=== PATIENT | female | born 1990 | race Caucasian/White ===

== ENCOUNTER 2024-04-11 06:09 | Emergency (ER) | payer OTHER, SELFPAY ==
[2024-04-11 06:11] VITALS: BP 113/71
--- NOTE | 2024-04-11 06:19 | ED.GENMED ---
History of Present Illness
General
Chief Complaint: Abdominal Symptoms
Time Seen by Provider: 04/11/24 06:17
History of Present Illness
History of Present Illness:
HPI: Patient is 9 weeks and presents due to concerns for dehydration. She has been vomiting and has been on Zofran over the last few days. She feels very thirsty. She thinks that the last time she had anything to drink was over 18 hours
ago. She has no abdominal pain. She has not had vaginal bleeding. This is her third and she had severe hyperemesis gravidarum requiring admission in her first . She had been taking likely just but currently was taking Zofran
over the last 2 days. There has been only minimal if any improvement with Zofran.
EXAM:
GENERAL: Well appearing but in mild distress
HEENT: Moist oral mucosa
CARDIOVASCULAR: No murmurs, normal heart rate, regular rhythm, No chest wall tenderness
PULMONARY: No respiratory distress, breath sounds are clear and equal
ABDOMEN: Soft with no peritoneal signs, no tenderness
NEUROLOGIC: Excellent strength all extremities, no coordination deficits
PSYCHIATRIC: Appropriate mental status, normal insight and judgement
EXTREMITIES: Nontender, no edema, moves all extremities equally
SKIN: No rash, no lesions
TIME OF INITIAL ENCOUNTER: 6:20 AM
NUMBER AND COMPLEXITY OF PROBLEMS ADDRESSED AT THE ENCOUNTER
� Chronic conditions affecting care: Has had SVT status post ablation 2003, asthma, autoimmune hepatitis
� Acute Exacerbation and/or Progression of Chronic Illness: This is an acute problem
� Differential Diagnosis includes: Hyperemesis gravidarum, dehydration, the patient has no pelvic cramping nor vaginal bleeding to suggest miscarriage
AMOUNT AND/OR COMPLEXITY OF DATA TO BE REVIEWED AND ANALYZED
� I performed an independent evaluation of and my interpretation is:
EKG:
CT:
X-rays:
Laboratory Studies: White count 6.2, hemoglobin 9.5, chemistries unremarkable, no ketones in urine, urobilinogen noted however the LFTs are normal
Other:
� Review of other/old records: The patient was admitted to [facility] in 2008 for hyperemesis gravidarum; hemoglobin in 2008 was 9.6
� Clinical information was obtained by an independent historian: None needed
� Prescriptions/Medications Considered but not given:
� Further testing considered but not performed: No indication for ultrasound imaging of the pelvis at this time
RISK OF COMPLICATIONS AND/OR MORBIDITY OR MORTALITY OF PATIENT MANAGEMENT
� Social determinants of health affecting care: Lives at home
� Discussion with other providers: None needed
� Escalation of care including admission/observation vs risk of discharge considered: The patient was given 2 L of IV fluids. She has no ketones in her urine. On reassessment at 8:14 AM, the patient is resting comfortably.
Past History
Past History
ED Past Medical History: Asthma, Other (SVT ) and Other
ED Past Surgical History: Cardiac (Radiofrequency ablation 2004 ) and Other (wisdom tooth extraction x4 )
Social History
Tobacco: Non-smoker
Alcohol: None
Personal: Single
Living: with family
Phy Exam
Physical Exam
Physical Exam:
See HPI
Course
Orders/Labs/Results
Orders:
Orders
04/11/24 06:20
0.9% Sodium Chloride 1000 ml [Nss] 1,000 ml IV BOLUS
04/11/24 06:21
0.9% Sodium Chloride 1000 ml [Nss] 1,000 ml IV BOLUS
04/11/24 06:25
Diphenhydramine [Benadryl] 25 mg IV NOW STA
Metoclopramide [Reglan] 10 mg IV NOW STA
04/11/24 06:43
Complete Blood Count/With Diff Urgent
Comprehensive Metabolic Panel Urgent
Lipase Urgent
Urinalysis Urgent
Date Specimen was Collected: 04/11/24
Time Specimen was Collected: 06:32
Urine Microscopic Urgent
Date Specimen was Collected: 04/11/24
Time Specimen was Collected: 06:32
Abnormal Lab Results
04/11/24
06:43
RBC 4.19 L 10^6/uL
(4.20-5.40)
Hgb 9.5 L g/dL
(12.0-16.0)
Hct 28.2 L %
(37.0-47.0)
MCV 67.3 L fL
(81.0-99.0)
MCH 22.7 L pg
(27.0-31.0)
RDW 19.0 H %
(11.5-14.5)
Abs Immat Gran (auto) 0.1 H 10^3/uL
(0-0.05)
Absolute Monos (auto) 0.7 H 10^3/uL
(0.1-0.6)
Immature Gran % 1.0 H %
(0-0.5)
Monocytes % 10.9 H %
(1.7-9.3)
ALT 47 H U/L
(0-35)
Urine Bilirubin 1+ A
(Negative)
Urine Urobilinogen 2+ A
(Neg - 1+)
Ur Leukocyte Esterase Trace A
(Negative)
Urine Bacteria Few A
(Negative)
04/11/24 06:43
04/11/24 06:43
Vital Signs
Initial and Last Documented VS:
Initial Vital Signs
Temp Pulse Resp BP Pulse Ox
98.9 F 95 20 113/71 99
04/11/24 06:11 04/11/24 06:11 04/11/24 06:11 04/11/24 06:11 04/11/24 06:11
Last Documented Vital Signs
Temp Pulse Resp BP Pulse Ox
98.9 F 62 15 97/52 99
04/11/24 06:11 04/11/24 08:00 04/11/24 08:00 04/11/24 08:00 04/11/24 08:00
*Critical Care Note
Total Time (30-74mins, 75-104mins- exclusive of procedures): Not Applicable
ED Attending Note
-
Portions of this chart may have been created with voice recognition software.� Occasional wrong word or��sound alike� substitutions may have occurred due to the inherent limitations of voice recognition software.
Discharge Plan
Departure
Patient Disposition: Home (Routine Discharge)
Date of Disposition: 04/11/24
Time of Disposition: 08:15
Patient with high blood pressure during this ER visit?: Yes
Discharge Problem:
Hyperemesis gravidarum
Instructions: Hyperemesis Gravidarum (DC)
Prescriptions:
New
metoclopramide HCl [Reglan] 10 mg tablet
10 mg PO Q8HPRN PRN (Reason: nausea and vomiting) Qty: 9 0RF
No Action
ondansetron HCl [Zofran] 4 MG tablet
4 mg sublingual Q8
vit27,ibrcbgi-[id number]-YR 1 EACH tablet
1 ea PO DAILY
Referrals:
Oscar Lew MD [Family Provider] -
Activity Restrictions/Additional Instructions:
Follow-up your TEACH[employer]OCI[employer]. Return here if worse. I also sent a prescription for Reglan to your pharmacy.
Interventions
Interventions:
*Risk Screen - Suicide Last Done: 04/11/24 06:11
*General Assessment Last Done: 04/11/24 06:11
*Neglect/Abuse Screening Last Done: 04/11/24 06:11
ED- Fall Risk Assessment Last Done: 04/11/24 06:11
*ED COVID-19 Vaccine History Last Done: 04/11/24 06:11
FI-Ceyuno-Hyukoqlhkp Assessment Last Done: 04/11/24 06:50
ED-Female Genitourinary Assessment Last Done: 04/11/24 06:50
Discharge Date and Time
Print Language: YORUBA
[2024-04-11] MEDS: REGLAN 10 MG IV (06:39)
[2024-04-11] MEDS: BENADRYL 25 MG IV (06:39)
[2024-04-11] MEDS: NSS 1000 IV ×2 (06:42)
[2024-04-11 07:09] LABS: Urine Albumin Negative (Neg - Trace); Urine Bilirubin 1+ (Negative); Urine Character Clear (Clear); Urine Color Yellow; Urine Glucose Negative (Negative); Urine Ketone Negative (Negative); Urine Leukocyte Trace (Negative); Urine Nitrite Negative (Negative); Urine Occult Blood Negative (Negative); Urine Specific Gravity 1.015 (<1.030); Urine Urobilinogen 2+ (Neg - 1+)
[2024-04-11 07:20] LABS: ALT (SGPT) 47 U/L (0-35); AST (SGOT) 33 U/L (14-36); Albumin 4.3 g/dl (3.5-5.0); Alkaline Phosphatase 43 U/L (38-126); Blood Urea Nitrogen 11 mg/dl (7-17); Calcium 9.5 mg/dl (8.4-10.2); Carbon Dioxide 22 mmol/L (22-30); Chloride 105 mmol/L (98-107); Glucose 89 mg/dl (70-99); Lipase 51 U/L (23-300); Potassium 3.9 mmol/L (3.5-5.1); Sodium 135 mmol/L (135-145); Total Bilirubin 1.1 mg/dl (0.2-1.3); Total Protein 6.9 g/dl (6.3-8.2); eGFR > 60.00
[2024-04-11 07:55] LABS: % Basophils 0.3 % (0-2); % Eosinophils 1.1 % (0-6); % Lymphocytes 26.6 % (20.5-51.1); % Monocytes 10.9 % (1.7-9.3); % Neutrophils 60.1 % (42.2-75.2); Absolute Eosinophils 0.1 10^3/uL (0-0.7); Absolute Immature Granulocytes 0.1 10^3/uL (0-0.05); Absolute Lymphocytes 1.7 10^3/uL (1.2-3.4); Absolute Monocytes 0.7 10^3/uL (0.1-0.6); Absolute Neutrophils 3.7 10^3/uL (1.4-6.5); Hematocrit 28.2 % (37.0-47.0); Hemoglobin 9.5 g/dL (12.0-16.0); Mean Corp Hgb Conc. 33.7 g/dL (33.0-37.0); Mean Corpuscular Hgb 22.7 pg (27.0-31.0); Mean Corpuscular Volume 67.3 fL (81.0-99.0); Nucleated Red Blood Cells % 0 %; Platelet Count 202 10^3/uL (130-400); Red Blood Cell Count 4.19 10^6/uL (4.20-5.40); Urine Urothelial Cell 0-2 /LPF (FEW); White Blood Cell Count 6.2 10^3/uL (4.8-10.8)
[2024-04-11 07:56] LABS: Urine Bacteria Few (Negative); Urine Red Blood Cell 0-2 /HPF (0-2)
[2024-04-11 08:00] VITALS: BP 97/52
== END 2024-04-11 10:31 | disposition home or self-care (01) ==
LOC: EMR 06:09
PROVIDERS: EMERGENCY PHYSICIAN Emergency Medicine; FAMILY PHYSICIAN Family Medicine
DX: O21.0 Mild hyperemesis gravidarum (principal); O99.511 Diseases of the respiratory system complicating pregnancy, first trimester; J45.909 Unspecified asthma, uncomplicated; Z3A.09 9 weeks gestation of pregnancy
CPT/HCPCS: 99283; 96374; 96375; 96361; 80053; 81003; 81015; 83690; 85025

== ENCOUNTER 2025-05-24 16:40 | Emergency (ER) | payer OTHER, BC, SELFPAY ==
[2025-05-24 16:42] VITALS: BP 116/66
[2025-05-24 17:09] LABS: Hematocrit 30.4 % (37.0-47.0); Hemoglobin 10.0 g/dL (12.0-16.0); Mean Corp Hgb Conc. 32.9 g/dL (33.0-37.0); Mean Corpuscular Volume 65.2 fL (81.0-99.0); Nucleated Red Blood Cells % 0 %; Platelet Count 223 10^3/uL (130-400); Red Cell Dist. Width 17.9 % (11.5-14.5)
[2025-05-24 17:35] LABS: ALT (SGPT) 75 U/L (0-35); AST (SGOT) 35 U/L (14-36); Albumin 4.5 g/dl (3.5-5.0); Alkaline Phosphatase 56 U/L (38-126); Blood Urea Nitrogen 11 mg/dl (7-17); Calcium 9.7 mg/dl (8.4-10.2); Carbon Dioxide 23 mmol/L (22-30); Chloride 104 mmol/L (98-107); Glucose 120 mg/dl (70-99); Potassium 4.1 mmol/L (3.5-5.1); Sodium 135 mmol/L (135-145); Total Protein 7.5 g/dl (6.3-8.2); eGFR > 60.00
[2025-05-24 18:01] LABS: HCG, Serum Qualitative Screen Positive
[2025-05-24] MEDS: NSS 1000 IV (18:13)
[2025-05-24] MEDS: ZOFRAN 4 MG IV (18:13)
--- NOTE | 2025-05-24 18:38 | ED.GENMED ---
History of Present Illness
General
Chief Complaint: Problems
Source: patient
Time Seen by Provider: 05/24/25 17:49
History of Present Illness
History of Present Illness:
34-year-old female, , currently 8 weeks presenting to the ER after she started experiencing light vaginal bleeding around 1:00 this afternoon with light bleeding consistent since that time, recommended to come to the ER by her
coding team lead. Patient had a ultrasound done earlier this week showing single live intrauterine . Patient endorses since she has gotten being nauseous, taking Zofran at home with intermittent relief. She endorses some mild lower
abdominal cramping presently but otherwise no urinary symptoms, fevers, back or flank pain or any other concerns.
Past History
Past History
ED Past Medical History: Asthma, Other (SVT ) and Other
ED Past Surgical History: Cardiac (Radiofrequency ablation 2004 ) and Other (wisdom tooth extraction x4 )
Social History
Tobacco: Non-smoker
Alcohol: None
Drug: None
Personal: Single
Living: with family
Review of Systems
Review of Systems
All Other Systems: ROS reviewed and negative except as documented in HPI and ROS
Phy Exam
Physical Exam
Physical Exam:
GENERAL: Alert , retching, appears mildly uncomfortable
EYE: conjunctiva clear
Head: Normocephalic atraumatic
NECK: Supple,
ENT: mmm.
LUNGS: no acute respiratory distress
ABDOMEN: soft, non-tender
NEUROLOGICAL: Alert and oriented
SKIN: Warm and dry, skin intact.
MUSCULOSKELETAL: well perfused.
PSYCH: Normal and appropriate interaction.
Scores
Heart Failure Risk
Heart Failure Risk Score: Not Applicable
Heart Score for Chest Pain Patients
STEMI patient?: Not applicable
Withdrawal Assessment of Alcohol
Withdrawal Assessment Completed?: Not applicable
Course
Orders/Labs/Results
Orders:
Orders
05/24/25 16:49
Beta HCG Quantitative Urgent
Is this a screen?: No
Comment: ADD ON
CMP [Comprehensive Metabolic Panel] Urgent
Complete Blood Count/With Diff Urgent
HCG, Serum Qualitative Screen Urgent
05/24/25 16:50
Test Result ONCE
05/24/25 17:49
US 1st Trimester Urgent
Comment:
Reason For Exam: first trimester bleeding
05/24/25 18:05
Add On- LAB Urgent
Tests Added?: hcg quantitative
0.9% Sodium Chloride 1000 ml [Nss] 1,000 ml IV BOLUS
Ondansetron Injectable [Zofran] 4 mg IV NOW STA
05/24/25 19:44
Urinalysis Reflex To Culture Urgent
Date Specimen was Collected: 05/24/25
Time Specimen was Collected: 18:44
Abnormal Lab Results
05/24/25
16:49
Hgb 10.0 L g/dL
(12.0-16.0)
Hct 30.4 L %
(37.0-47.0)
MCV 65.2 L fL
(81.0-99.0)
MCH 21.5 L pg
(27.0-31.0)
MCHC 32.9 L g/dL
(33.0-37.0)
RDW 17.9 H %
(11.5-14.5)
Absolute Neuts (auto) 6.8 H 10^3/uL
(1.4-6.5)
Absolute Monos (auto) 0.9 H 10^3/uL
(0.1-0.6)
Creatinine 0.5 L mg/dL
(0.6-1.0)
Glucose 120 H mg/dl
(70-99)
ALT 75 H U/L
(0-35)
05/24/25 16:49
05/24/25 16:49
Vital Signs
Initial and Last Documented VS:
Initial Vital Signs
Temp Pulse Resp BP Pulse Ox
99.2 F 88 18 116/66 99
05/24/25 16:42 05/24/25 16:42 05/24/25 16:42 05/24/25 16:42 05/24/25 16:42
Last Documented Vital Signs
Temp Pulse Resp BP Pulse Ox
99.2 F 78 18 121/70 99
05/24/25 16:42 05/24/25 20:25 05/24/25 20:25 05/24/25 20:25 05/24/25 20:25
Information
Weeks gestation: Weeks: (8)
Location: Location: (IUP)
MDM/Problems Addressed
Differential Diagnosis Includes:
Threatened
Incomplete
Completed
Subchorionic Hemorrhage
UTI
I do not have concern for ectopic given the patient just had an ultrasound this week showing a single live IUP
MDM/Problems Addressed:
34-year-old female presenting to the ER for evaluation of vaginal bleeding, mild lower abdominal discomfort. G4, P3, no previous miscarriages, abortions or ectopic pregnancies. Ultrasound ordered to further evaluate. Labs ordered including hCG
quantitative. Patient will need repeat hCG level in 48 hours.
*Radiology
Radiology exam reviewed: radiology read reviewed
*Pulse Oximetry
SaO2: 99
Oxygen Mode of Delivery: Room air
Patient hypoxic: no
*Critical Care Note
Total Time (30-74mins, 75-104mins- exclusive of procedures): Not Applicable
Patient Management
Escalation/DeEscalation of care consider admission/obs:
US confirms single IUP with cardiac activity at 8 weeks and 3 days. Patient remains stable. She will return to ED in 48 hours for repeat HCG if unable to see her OB. She was provided with labs and US reports. Stable for d/c home. Advised on pelvic
rest. Aware of return precautions
ED Attending Note
-
Portions of this chart may have been created with voice recognition software.� Occasional wrong word or��sound alike� substitutions may have occurred due to the inherent limitations of voice recognition software.
Discharge Plan
Departure
Patient Disposition: Home (Routine Discharge)
Date of Disposition: 05/24/25
Time of Disposition: 20:14
Patient with high blood pressure during this ER visit?: No
Discharge Problem:
Threatened miscarriage
Instructions: Threatened Miscarriage (DC)
Prescriptions:
No Action
ondansetron HCl [Zofran] 4 MG tablet
4 mg sublingual Q8
vit 27,vqdd-jxfd-VN 1 EACH tablet
1 ea PO DAILY
metoclopramide HCl [Reglan] 10 mg tablet
10 mg PO Q8HPRN PRN (Reason: nausea and vomiting) Qty: 9 0RF
Interventions
Interventions:
*Risk Screen - Suicide Last Done: 05/24/25 18:23
*Neglect/Abuse Screening Last Done: 05/24/25 18:23
*Nursing Disposition Last Done: 05/24/25 20:25
ED-Female Genitourinary Assessment Last Done: 05/24/25 18:35
Discharge Date and Time
Discharge Date/Time: 05/24/25 20:26
Print Language: BULGARIAN
[2025-05-24 19:36] LABS: Beta HCG Quantitative 144260.00 mIU/ml
[2025-05-24 19:49] LABS: Urine Character Clear (Clear)
[2025-05-24 20:25] VITALS: BP 121/70
== END 2025-05-24 20:26 | disposition home or self-care (01) ==
LOC: EMR 16:40
PROVIDERS: Physician Assistant Medical; EMERGENCY PHYSICIAN Emergency Medicine; FAMILY PHYSICIAN Family Medicine
DX: O20.0 Threatened abortion (principal); O09.521 Supervision of elderly multigravida, first trimester; O99.511 Diseases of the respiratory system complicating pregnancy, first trimester; J45.909 Unspecified asthma, uncomplicated; Z3A.08 8 weeks gestation of pregnancy
CPT/HCPCS: 99284; 96374; 96361; 76801; 80053; 81003; 84702; 84703; 85025

== ENCOUNTER 2025-05-27 08:12 | Emergency (ER) | payer OTHER, BC, SELFPAY ==
[2025-05-27 08:14] VITALS: BP 107/69
[2025-05-27 08:53] LABS: Hematocrit 30.7 % (37.0-47.0); Hemoglobin 10.2 g/dL (12.0-16.0); Mean Corp Hgb Conc. 33.2 g/dL (33.0-37.0); Mean Corpuscular Volume 65.6 fL (81.0-99.0); Nucleated Red Blood Cells % 0 %; Platelet Count 216 10^3/uL (130-400); Red Cell Dist. Width 17.5 % (11.5-14.5)
--- NOTE | 2025-05-27 09:20 | ED.GENMED ---
History of Present Illness
General
Chief Complaint: Problems
Source: patient
Exam Limitations: none
Time Seen by Provider: 05/27/25 08:20
Nursing documentation reviewed up to this point in time: agreed with
History of Present Illness
History of Present Illness:
34-year-old female G4, P3 no previous miscarriages abortions or ectopic pregnancies presenting to the emergency department for repeated hCG. Had vaginal bleeding and a clot 3 days ago and was unable to get follow-up in time to get repeat hCG. She
denies any ongoing symptoms no cramping no bleeding.
Past History
Past History
ED Past Medical History: Asthma, Other (SVT ) and Other
ED Past Surgical History: Cardiac (Radiofrequency ablation 2004 ) and Other (wisdom tooth extraction x4 )
Social History
Tobacco: Non-smoker
Alcohol: None
Drug: None
Personal: Single
Living: with family
Review of Systems
Review of Systems
Allergies reviewed?: Yes
All Other Systems: ROS reviewed and negative except as documented in HPI and ROS
Phy Exam
Physical Exam
Physical Exam:
GENERAL: Alert , in no apparent distress
EYE: Normal appearance of the eyes.
NECK: No visible abnormality, trachea midline
ENT: No visible abnormalities mmm.
LUNGS: no acute respiratory distress
NEUROLOGICAL: Alert and oriented, no focal neuro deficits
SKIN: Warm and dry, skin intact.
MUSCULOSKELETAL: Moving all extremities normally
PSYCH: Normal and appropriate interaction.
Course
Orders/Labs/Results
Orders:
Orders
05/27/25 08:27
Beta HCG Quantitative Urgent
Is this a screen?: No
CBC/With Diff [Complete Blood Count/With Diff] Urgent
Abnormal Lab Results
05/27/25
08:27
Hgb 10.2 L g/dL
(12.0-16.0)
Hct 30.7 L %
(37.0-47.0)
MCV 65.6 L fL
(81.0-99.0)
MCH 21.8 L pg
(27.0-31.0)
RDW 17.5 H %
(11.5-14.5)
Absolute Monos (auto) 0.8 H 10^3/uL
(0.1-0.6)
Monocytes % 9.5 H %
(1.7-9.3)
05/27/25 08:27
Vital Signs
Initial and Last Documented VS:
Initial Vital Signs
Temp Pulse Resp BP Pulse Ox
98.0 F 84 16 107/69 98
05/27/25 08:14 05/27/25 08:14 05/27/25 08:14 05/27/25 08:14 05/27/25 08:14
Last Documented Vital Signs
Temp Pulse Resp BP Pulse Ox
98.0 F 68 16 110/75 98
05/27/25 08:14 05/27/25 10:13 05/27/25 10:13 05/27/25 10:13 05/27/25 09:21
Information
Weeks gestation: Weeks:
Location: Location:
MDM/Problems Addressed
MDM/Problems Addressed:
34-year-old female presenting for repeat hCG. Had vaginal bleeding few days ago currently 8 weeks by ultrasound. Ultrasound did confirm IUP. Patient's quantitative hCG of 170,000 previous 3 days ago was 144,000. Patient is 8 weeks so this level
is difficult to interpret. 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 This was discussed with the patient who demonstrated understanding. Return precautions given.
*Pulse Oximetry
SaO2: 98
Oxygen Mode of Delivery: Room air
Patient hypoxic: no (99)
*Critical Care Note
Total Time (30-74mins, 75-104mins- exclusive of procedures): Not Applicable
ED Attending Note
-
Portions of this chart may have been created with voice recognition software.� Occasional wrong word or��sound alike� substitutions may have occurred due to the inherent limitations of voice recognition software.
Discharge Plan
Departure
Patient Disposition: Home (Routine Discharge)
Date of Disposition: 05/27/25
Time of Disposition: 10:24
Patient with high blood pressure during this ER visit?: No
Condition: Good
Covid-19: Not Applicable
Discharge Problem:
Threatened miscarriage
Instructions: Threatened Miscarriage (DC)
Prescriptions:
No Action
ondansetron HCl [Zofran] 4 MG tablet
4 mg sublingual Q8
vit 27,kskj-zbhg-RJ 1 EACH tablet
1 ea PO DAILY
metoclopramide HCl [Reglan] 10 mg tablet
10 mg PO Q8HPRN PRN (Reason: nausea and vomiting) Qty: 9 0RF
Referrals:
Oscar Lew MD [Family Provider, Family Practice]
Activity Restrictions/Additional Instructions:
You came to the emergency department today for repeated hCG. This was elevating compared to the previous number a few days ago. At this stage of it is difficult to interpret the hCG levels as they do not always double in 48 to 72 hours.
It is importantly follow-up closely with the phd internship for further recommendations.
Interventions
Interventions:
*Risk Screen - Suicide Last Done: 05/27/25 08:14
*General Assessment Last Done: 05/27/25 08:46
*Neglect/Abuse Screening Last Done: 05/27/25 08:14
*ED- Fall Risk Assessment Last Done: 05/27/25 08:21
*ED COVID-19 Vaccine History Last Done: 05/27/25 08:21
ED-Female Genitourinary Assessment Last Done: 05/27/25 08:21
Discharge Date and Time
Print Language: LITHUANIAN
[2025-05-27 10:01] LABS: Beta HCG Quantitative 170930.00 mIU/ml
[2025-05-27 10:13] VITALS: BP 110/75
== END 2025-05-27 10:31 | disposition home or self-care (01) ==
LOC: EMR 08:12
PROVIDERS: Physician Assistant; EMERGENCY PHYSICIAN Emergency Medicine; FAMILY PHYSICIAN Family Medicine
DX: O20.0 Threatened abortion (principal); J45.909 Unspecified asthma, uncomplicated; I47.10 Supraventricular tachycardia, unspecified
CPT/HCPCS: 99283; 84702; 85025

== ENCOUNTER 2025-06-13 07:45 | Emergency (ER) | payer OTHER, BC, SELFPAY ==
[2025-06-13] VITALS (8 sets, daily range): BP systolic 94–115; BP diastolic 56–69; BMI 28.9
--- NOTE | 2025-06-13 08:12 | ED.GENMED ---
History of Present Illness
General
Chief Complaint: Abdominal Symptoms
Source: patient
Exam Limitations: none
Time Seen by Provider: 06/13/25 07:51
Nursing documentation reviewed up to this point in time: agreed with
History of Present Illness
History of Present Illness:
35 yr old female approx 11 wks presents to the ER complaining of nausea vomiting. Patient has had vomiting through this that started at week 6. She is followed by [facility]. She has a prescription for
Zofran 4 mg and last took it yesterday. She reports she vomited from 8 PM to 10 PM last night and then started vomiting again from 5 AM to presently. She denies any abdominal pain or cramping. Denies any urinary frequency urgency dysuria. Denies
any vaginal bleeding. She has had a normal ultrasound during this . Her last menstrual period was March 26 and she is due 12/31/25.
She had similar episodes of nausea during previous pregnancies.
This is patient's 4th . She had an normal ultrasound May 24 which showed a single live IUP 8 weeks 3 days at that time with a heart rate of 155.
Past History
Past History
ED Past Medical History: Asthma, Other (SVT ) and Other
ED Past Surgical History: Cardiac (Radiofrequency ablation 2004 ) and Other (wisdom tooth extraction x4 )
Social History
Tobacco: Non-smoker
Alcohol: None
Drug: None
Personal: Single
Living: with family
Phy Exam
General Physical Exam
General Presentation: no apparent distress
General age: appears stated age
General Skin: warm and dry
General Habitus: normal
General Mental: alert
General Hydration: dry mucous membranes
Cardiovascular Exam
Cardiovascular Exam: regular rate/rhythm, no murmur and normal peripheral pulses
Pulmonary Exam
Pulmonary Exam: lungs clear and no respiratory distress
Gastrointestinal Exam
Gastrointestinal Exam: non tender and soft
Neurological Exam
Neurological Exam: alert and oriented x3
Musculoskeletal Exam
Musculoskeletal Exam: full ROM
Skin Exam
Skin Exam: normal color and warm/dry
Psychiatric Exam
Psychiatric Exam: normal mood/affect
Course
Orders/Labs/Results
Orders:
Orders
06/13/25 08:16
IV Insert/Care/Rem.- Treatment PRN
0.9% Sodium Chloride 1000 ml [Nss] 1,000 ml IV BOLUS
Ondansetron Injectable [Zofran] 4 mg IV NOW STA
06/13/25 08:41
Complete Blood Count/With Diff Urgent
Comprehensive Metabolic Panel Urgent
06/13/25 10:37
Diphenhydramine [Benadryl] 25 mg IV NOW STA
Prochlorperazine [Compazine] 10 mg IV NOW STA
06/13/25 10:38
0.9% Sodium Chloride 1000 ml [Nss] 1,000 ml IV BOLUS
06/13/25 10:43
UA Reflex to Culture [Urinalysis Reflex To Culture] Urgent
Date Specimen was Collected: 06/13/25
Time Specimen was Collected: 10:37
06/13/25 13:00
Heart Tones ONCE
Abnormal Lab Results
06/13/25
08:41
Hgb 10.3 L g/dL
(12.0-16.0)
Hct 31.0 L %
(37.0-47.0)
MCV 66.5 L fL
(81.0-99.0)
MCH 22.1 L pg
(27.0-31.0)
RDW 18.2 H %
(11.5-14.5)
Creatinine 0.5 L mg/dL
(0.6-1.0)
Total Bilirubin 1.4 H mg/dl
(0.2-1.3)
ALT 59 H U/L
(0-35)
06/13/25 08:41
06/13/25 08:41
Vital Signs
Initial and Last Documented VS:
Initial Vital Signs
Temp Pulse Resp BP Pulse Ox
98.3 F 79 16 115/69 98
06/13/25 07:47 06/13/25 07:47 06/13/25 07:47 06/13/25 07:47 06/13/25 07:47
Last Documented Vital Signs
Temp Pulse Resp BP Pulse Ox
98.3 F 93 22 104/66 99
06/13/25 08:19 06/13/25 13:45 06/13/25 13:45 06/13/25 13:00 06/13/25 13:45
[facility] Director consulted with Physician
[facility] Director consulted with physician?: Yes
Name of Physician Consulted: Yajaira
MDM/Problems Addressed
Differential Diagnosis Includes:
not limited to: Hyperemesis
MDM/Problems Addressed:
As documented patient is a 37-year-old female 11 weeks presents with nausea vomiting. This is patient's fourth she presented similar with other pregnancies. She is initially given fluids however did vomit after p.o. challenge.
She requested Compazine and Benadryl which worked for her previously and she was given this with additional fluids feeling better attempted to drink at this time. Will plan for discharge home if symptoms resolved. She denies any abdominal pain
cramping or bleeding.
I did review patient's previous ultrasound from July 24 which showed a single live IUP 8 weeks 3 days at that time with a heart tone of 155. Both the nurse and myself attempted to get heart tones by Doppler however unsuccessful
however patient has no abdominal pain, no bleeding due for ultrasound next Tuesday.
Patient was able to drink fluids and have a soft pretzel feeling much better. She does have Zofran at home
Chronic conditions affecting care:
11 weeks .
*Pulse Oximetry
SaO2: 98
Oxygen Mode of Delivery: Room air
Patient hypoxic: no
*Critical Care Note
Total Time (30-74mins, 75-104mins- exclusive of procedures): Not Applicable
ED Attending Note
-
Portions of this chart may have been created with voice recognition software.� Occasional wrong word or��sound alike� substitutions may have occurred due to the inherent limitations of voice recognition software.
Discharge Plan
Departure
Patient Disposition: Home (Routine Discharge)
Date of Disposition: 06/13/25
Time of Disposition: 14:00
Patient with high blood pressure during this ER visit?: No
Condition: Fair
Covid-19: Not Applicable
Discharge Problem:
Hyperemesis gravidarum
Instructions: Hyperemesis Gravidarum (DC)
Prescriptions:
No Action
ondansetron HCl [Zofran] 4 MG tablet
4 mg sublingual Q8
vit 27,kbzg-ozqx-YM 1 EACH tablet
1 ea PO DAILY
metoclopramide HCl [Reglan] 10 mg tablet
10 mg PO Q8HPRN PRN (Reason: nausea and vomiting) Qty: 9 0RF
Referrals:
Oscar Lew MD [Family Provider, Family Practice]
Emma Arroyo DO [Active, Gynecology]
Activity Restrictions/Additional Instructions:
As discussed you may take Zofran as previously prescribed. Follow-up closely with your and [facility] as scheduled return if any worsening of symptoms.
Interventions
Interventions:
*Risk Screen - Suicide Last Done: 06/13/25 07:47
*General Assessment Last Done: 06/13/25 08:10
*Neglect/Abuse Screening Last Done: 06/13/25 07:47
*ED- Fall Risk Assessment Last Done: 06/13/25 08:10
*ED COVID-19 Vaccine History Last Done: 06/13/25 08:10
HX-Yxgysm-Kagxqujmxr Assessment Last Done: 06/13/25 08:21
Discharge Date and Time
Print Language: TELUGU
[2025-06-13] MEDS: NSS 1000 IV ×2 (08:36→10:49)
[2025-06-13] MEDS: ZOFRAN 4 MG IV (08:38)
[2025-06-13 08:55] LABS: Hematocrit 31.0 % (37.0-47.0); Hemoglobin 10.3 g/dL (12.0-16.0); Mean Corp Hgb Conc. 33.2 g/dL (33.0-37.0); Mean Corpuscular Volume 66.5 fL (81.0-99.0); Nucleated Red Blood Cells % 0 %; Platelet Count 201 10^3/uL (130-400); Red Cell Dist. Width 18.2 % (11.5-14.5)
[2025-06-13 09:04] LABS: ALT (SGPT) 59 U/L (0-35); AST (SGOT) 32 U/L (14-36); Albumin 4.6 g/dl (3.5-5.0); Alkaline Phosphatase 52 U/L (38-126); Blood Urea Nitrogen 8 mg/dl (7-17); Calcium 9.0 mg/dl (8.4-10.2); Carbon Dioxide 22 mmol/L (22-30); Chloride 104 mmol/L (98-107); Estimated Creatinine Clearance > 125 ml/min; Glucose 83 mg/dl (70-99); Potassium 4.2 mmol/L (3.5-5.1); Sodium 135 mmol/L (135-145); Total Protein 7.9 g/dl (6.3-8.2); eGFR > 60.00
[2025-06-13] MEDS: COMPAZINE 10 MG IV (10:47)
[2025-06-13] MEDS: BENADRYL 25 MG IV (10:52)
[2025-06-13 10:56] LABS: Urine Character Clear (Clear)
== END 2025-06-13 14:21 | disposition home or self-care (01) ==
LOC: EMR 07:45
PROVIDERS: Nurse Practitioner; EMERGENCY PHYSICIAN Emergency Medicine; FAMILY PHYSICIAN Family Medicine
DX: O21.0 Mild hyperemesis gravidarum (principal); O99.511 Diseases of the respiratory system complicating pregnancy, first trimester; J45.909 Unspecified asthma, uncomplicated; Z3A.11 11 weeks gestation of pregnancy
CPT/HCPCS: 99284; 96374; 96375 ×2; 96361 ×2; 80053; 81003; 85025

== ENCOUNTER 2025-06-24 09:01 | Emergency (ER) | payer OTHER, BC, SELFPAY ==
[2025-06-24 09:04] VITALS: BP 104/78
--- NOTE | 2025-06-24 09:27 | ED.GENMED ---
History of Present Illness
General
Chief Complaint: Abdominal Symptoms
Source: patient
Exam Limitations: none
Time Seen by Provider: 06/24/25 09:09
Nursing documentation reviewed up to this point in time: agreed with
History of Present Illness
History of Present Illness:
Patient is a healthy 35-year-old at approximately 14 weeks gestation who presents to the emergency department with intractable nausea/vomiting.
She was seen in ED 1.5 weeks ago with similar symptoms. She was doing well, only vomiting about once per day, until this morning when she has been inable to tolerate any po intake despite zofran. She denies any chest pain, shortness of breath,
lightheadedness, dizziness. She denies any vaginal bleeding, loss of fluids or abdominal cramping.
Patient has hx of hyperemesis gravidarum with prior pregnancies. She has ODT zofran at home prescribed by her MFM specialist at [place].
Patient had an US last week with MFM which should live IUP w/ heart tones of 160s .
No other concerns today.
Past History
Past History
ED Past Medical History: Asthma, Other (SVT ) and Other
ED Past Surgical History: Cardiac (Radiofrequency ablation 2004 ) and Other (wisdom tooth extraction x4 )
Social History
Tobacco: Non-smoker
Alcohol: None
Drug: None
Personal: Single
Living: with family
Review of Systems
Review of Systems
Allergies reviewed?: Yes
All Other Systems: ROS reviewed and negative except as documented in HPI and ROS
Phy Exam
Physical Exam
Physical Exam:
Vitals: Vital signs stable. Afebrile
General: Patient is well appearing in no distress.
Skin: Warm and dry, no rashes or lesions
Head: Normocephalic, atraumatic
Eyes: Sclera nonicteric.
Throat: Dry mucous membranes. Protecting airway
Neck: Normal ROM, no cervical spine tenderness, no meningismus
Cardiac: Regular rate and rhythm, no murmurs.
Pulm: Normal respiratory effort, no wheezes, rales, rhonchi heard on exam
Abdomen: Abdomen soft and nontender.
Extremities: No evidence of cyanosis or edema.
Neuro: AAOx3. Grossly intact.
Psychiatric: Normal affect.
Course
Orders/Labs/Results
Orders:
Orders
06/24/25 09:21
Diphenhydramine [Benadryl] 25 mg IV NOW STA
Lactated Ringers [Lr] 1,000 ml IV BOLUS
Prochlorperazine [Compazine] 10 mg IV NOW STA
Test Result ONCE
06/24/25 09:30
Heart Tones ONCE
06/24/25 09:47
Complete Blood Count/With Diff Urgent
06/24/25 11:17
Add On- LAB Urgent
Tests Added?: hcg quantitative
06/24/25 11:24
Beta HCG Quantitative Urgent
Is this a screen?: Yes
Comment: ADD ON
Comprehensive Metabolic Panel Urgent
HCG, Serum Qualitative Screen Urgent
Abnormal Lab Results
06/24/25 06/24/25
09:47 11:24
Hgb 9.7 L g/dL
(12.0-16.0)
Hct 30.0 L %
(37.0-47.0)
MCV 66.2 L fL
(81.0-99.0)
MCH 21.4 L pg
(27.0-31.0)
MCHC 32.3 L g/dL
(33.0-37.0)
RDW 18.8 H %
(11.5-14.5)
Absolute Neuts (auto) 6.7 H 10^3/uL
(1.4-6.5)
Absolute Monos (auto) 0.7 H 10^3/uL
(0.1-0.6)
Lymphocytes % 16.6 L %
(20.5-51.1)
BUN 6 L mg/dl
(7-17)
Creatinine 0.4 L mg/dL
(0.6-1.0)
ALT 62 H U/L
(0-35)
06/24/25 09:47
06/24/25 11:24
Vital Signs
Initial and Last Documented VS:
Initial Vital Signs
Temp Pulse Resp BP Pulse Ox
98.4 F 91 18 104/78 99
06/24/25 09:04 06/24/25 09:04 06/24/25 09:04 06/24/25 09:04 06/24/25 09:04
Last Documented Vital Signs
Temp Pulse Resp BP Pulse Ox
98.4 F 74 20 108/59 100
06/24/25 09:04 06/24/25 14:29 06/24/25 14:29 06/24/25 14:29 06/24/25 14:29
MDM/Problems Addressed
Differential Diagnosis Includes:
Not limited to: hyperemesis gravidarum, electrolyte abnormality, viral gastroenteritis, doubt appendicitis, etc
MDM/Problems Addressed:
35-year-old female, approximately 14 weeks gestation, presents with persistent nausea and vomiting consistent with hyperemesis gravidarum. She is under the care of an MFM specialist and had an ultrasound last week showing a live intrauterine
with heart rate in the 160s. She denies abdominal pain, vaginal bleeding, or fluid leakage.
In the ED, patient received IV fluids, diphenhydramine, and compazine with good clinical response. She tolerated oral intake and had no episodes of vomiting during observation. Vitals remained stable, and physical exam was unremarkable. No signs of
dehydration, acute abdomen, or obstetric complications. Labs were within normal limits.
No concern for intra-abdominal infection or other acute pathology at this time. She is stable for discharge with return precautions discussed. Will continue outpatient management of hyperemesis with OB/MFM. She has Zofran at home and was added
promethazine suppositories as needed for additional symptom control. Patient comfortable with plan.
Chronic conditions affecting care:
14 weeks gestation
Acute Exacerbation and/or Progression of Chronic Illness:
Acute hyperemesis gravidarum
*Pulse Oximetry
SaO2: 99
Oxygen Mode of Delivery: Room air
Patient hypoxic: no
*EKG
Interpreted by ED Provider?: NA
*Toilet And Laundry Soap Supervisor Interpretation
Rate: Toilet And Laundry Soap Supervisor- N/A
*Critical Care Note
Total Time (30-74mins, 75-104mins- exclusive of procedures): Not Applicable
ED Attending Note
-
Portions of this chart may have been created with voice recognition software.� Occasional wrong word or��sound alike� substitutions may have occurred due to the inherent limitations of voice recognition software.
Discharge Plan
Departure
Patient Disposition: Home (Routine Discharge)
Date of Disposition: 06/24/25
Time of Disposition: 14:56
Patient with high blood pressure during this ER visit?: No
Condition: Good
Discharge Problem:
Hyperemesis gravidarum
Instructions: Hyperemesis Gravidarum (DC)
Prescriptions:
New
promethazine 25 mg suppository
25 mg GA Q6H PRN (Reason: nausea and vomiting) Qty: 12 0RF
No Action
ondansetron HCl [Zofran] 4 MG tablet
4 mg sublingual Q8
vit 27,[id number] 1 EACH tablet
1 ea PO DAILY
metoclopramide HCl [Reglan] 10 mg tablet
10 mg PO Q8HPRN PRN (Reason: nausea and vomiting) Qty: 9 0RF
Referrals:
Oscar Lew MD [Family Provider, Family Practice]
Activity Restrictions/Additional Instructions:
RETURN TO THE EMERGENCY DEPARTMENT WITH ANY INTRACTABLE NAUSEA/VOMITING, ABDOMINAL PAIN, VAGINAL BLEEDING, SIGNS OF DEHYDRATION INCLUDING LACK OF URINARY PRODUCTION, LIGHTHEADEDNESS/DIZZINESS, WORSENING OF CURRENT SYMPTOMS, OR ANY OTHER CONCERNS
- As discussed�you were anemic today in the emergency department. Please have your primary care continue to trend your hemoglobin.
- Continue to stay well-hydrated. You can take Zofran as needed for nausea/vomiting as prescribed by your [facility] doctor. For intractable nausea you can try rectal Phenergan.
- Please follow-up with your [facility] doctor for further evaluation/management to ensure that your symptoms improved.
Monitor your symptoms closely and return to the emergency department any acute worsening/new symptoms or any other concerns
Interventions
Interventions:
*Risk Screen - Suicide Last Done: 06/24/25 09:04
*General Assessment Last Done: 06/24/25 09:04
*Neglect/Abuse Screening Last Done: 06/24/25 09:04
*ED- Fall Risk Assessment Last Done: 06/24/25 10:06
*ED COVID-19 Vaccine History Last Done: 06/24/25 11:23
*ED Influenza Vaccine History Last Done: 06/24/25 11:23
*Nursing Disposition Last Done: 06/24/25 15:20
HQ-Lyiodd-Rlllscfids Assessment Last Done: 06/24/25 10:06
Discharge Date and Time
Discharge Date/Time: 06/24/25 15:20
Print Language: HEBREW
[2025-06-24] MEDS: LR 1000 IV (09:35)
[2025-06-24] MEDS: BENADRYL 25 MG IV (09:36)
[2025-06-24] MEDS: COMPAZINE 10 MG IV (09:37)
[2025-06-24 10:09] LABS: Hematocrit 30.0 % (37.0-47.0); Hemoglobin 9.7 g/dL (12.0-16.0); Mean Corp Hgb Conc. 32.3 g/dL (33.0-37.0); Mean Corpuscular Volume 66.2 fL (81.0-99.0); Nucleated Red Blood Cells % 0 %; Platelet Count 220 10^3/uL (130-400); Red Cell Dist. Width 18.8 % (11.5-14.5)
[2025-06-24 12:01] LABS: HCG, Serum Qualitative Screen Positive
[2025-06-24 12:02] LABS: ALT (SGPT) 62 U/L (0-35); AST (SGOT) 31 U/L (14-36); Albumin 3.8 g/dl (3.5-5.0); Alkaline Phosphatase 45 U/L (38-126); Blood Urea Nitrogen 6 mg/dl (7-17); Calcium 8.7 mg/dl (8.4-10.2); Carbon Dioxide 23 mmol/L (22-30); Chloride 107 mmol/L (98-107); Glucose 81 mg/dl (70-99); Potassium 3.9 mmol/L (3.5-5.1); Sodium 135 mmol/L (135-145); Total Protein 6.6 g/dl (6.3-8.2); eGFR > 60.00
[2025-06-24 14:29] VITALS: BP 108/59
[2025-06-24 15:09] LABS: Beta HCG Quantitative 104990.00 mIU/ml
== END 2025-06-24 15:20 | disposition home or self-care (01) ==
LOC: EMR 09:01
PROVIDERS: Physician Assistant; EMERGENCY PHYSICIAN Emergency Medicine; FAMILY PHYSICIAN Family Medicine
DX: O21.0 Mild hyperemesis gravidarum (principal); O99.512 Diseases of the respiratory system complicating pregnancy, second trimester; J45.909 Unspecified asthma, uncomplicated; O09.522 Supervision of elderly multigravida, second trimester; Z3A.14 14 weeks gestation of pregnancy
CPT/HCPCS: 96374; 96375; 99284; 80053; 84702; 84703; 85025